=== PATIENT | male | born 1950 | race Caucasian/White ===

== ENCOUNTER 2017-06-24 13:22 | Emergency (ER) | payer SELFPAY ==
[2017-06-24 17:52] VITALS: BP 114/74
== END 2017-06-24 17:53 | disposition home or self-care (01) ==
LOC: ED 13:22
DX: J45.901 Unspecified asthma with (acute) exacerbation (principal); I10 Essential (primary) hypertension; E11.9 Type 2 diabetes mellitus without complications; Z79.4 Long term (current) use of insulin; Z79.84 Long term (current) use of oral hypoglycemic drugs
CPT/HCPCS: 82962; J7512; J7613